=== PATIENT | male | born 1965 | race Two or more races ===

== ENCOUNTER 2016-08-31 08:14 | Inpatient (IN) | payer MEDICAID ==
[~2016-08-31] VITALS: Ht 177.8 cm; Wt 95.3 kg
[~2016-08-31 08:14] MED LIST: FURO40TA4 PO; SPIR50TA2 PO
[2016-08-31 09:29] LABS: Basophils # (auto) 0 uL; Basophils % (auto) 0.1 % (0.0-2.0); Eosinophils # (auto) 0 uL; Eosinophils % (auto) 0.5 % (0.0-7.0); Hematocrit 39.6 % (41.0-53.0); Hemoglobin 12.9 g/dL (13.5-17.5); Lymphocytes # (auto) 0.2 uL; Lymphocytes % (auto) 2.6 % (10.0-50.0); Mean Corpuscular Hemoglobin 29.4 pg (28.0-32.0); Mean Corpuscular Hgb Conc. 32.5 g/dL (32.0-36.0); Mean Corpuscular Volume 90.3 fL (80.0-100.0); Monocytes # (auto) 0.7 uL; Neutrophils # (auto) 5.7 uL; Neutrophils % (auto) 85.8 % (37.0-80.0); Platelet Count (auto) 120 10^3/uL (140-450); Red Cell Distribution Width 15.3 % (11.6-16.0); White Blood Cell 6.7 10^3/uL (4.4-10.8)
[2016-08-31 09:50] LABS: Urine Bilirubin Negative (Negative); Urine Blood Negative /uL (Negative); Urine Color Yellow (Yellow); Urine Glucose Normal (Normal); Urine Ketone Negative (Negative); Urine Nitrite Negative (Negative); Urine RBC 1 /hpf (0 - 3); Urine Squamous Epithelial Cell FEW /hpf (<5); Urine Urobilinogen Normal (Negative)
[2016-08-31 10:16] LABS: Albumin 2.5 g/dL (3.4-5.0); BUN/Creatinine Ratio 13.3; Calcium 9.3 mg/dL (8.5-10.1); Potassium 3.6 mmol/L (3.5-5.1)
[2016-08-31] MEDS ORDERED: MORPHINE SULF INJ 2 MG/ML SYRINGE 1ML IV PRN ×2 (10:30)
[2016-08-31] MEDS ORDERED: NITROGLYCERIN 0.4 MG SL TAB SL PRN (10:30)
[2016-08-31] MEDS ORDERED: ALBUTEROL SULF 2.5 MG/0.5ML(0.5%) NEB SOLN NEB PRN (10:30)
[2016-08-31] MEDS ORDERED: PROMETHAZINE HCL 25 MG/ML 1ML IV PRN (10:30)
[2016-08-31] MEDS ORDERED: LORazepam 0.5 MG TAB PO PRN (10:30)
[2016-08-31] MEDS ORDERED: TEMAZEPAM 15 MG CAP PO PRN (10:30)
[2016-08-31] MEDS ORDERED: OSELTAMIVIR 75 MG CAP PO ONE (10:30)
[2016-08-31 10:38] LABS: B-Type Natriuretic Peptide 177.29 pg/mL (0-100); Temperature: 22.5 C (20.0-25.0)
[2016-08-31 11:08] LABS: INR 1.44 (0.9-1.15); Prothrombin Time 14.8 sec (9.37-12.3)
[2016-08-31] MEDS: LACTULOSE 20Gm/30ML SOLN PO SCH ×3 (11:39→22:23)
[2016-08-31] MEDS: ENALAPRIL MALEATE 2.5 MG TAB PO SCH (11:40)
[2016-08-31] MEDS: IPRATROPIUM BROM 0.5 MG/2.5ML INH SOL NEB SCH ×3 (13:02→23:37)
[2016-08-31] MEDS: ALBUTEROL SULF 2.5 MG/0.5ML(0.5%) NEB SOLN NEB SCH ×3 (13:03→23:37)
[2016-08-31] MEDS ORDERED: ALBUMIN 25% 100 ML IV ONE ×9 (15:00→20:15)
[2016-08-31 15:06] VITALS: BP 134/81
[2016-08-31 16:49] VITALS: BP 134/81
[2016-08-31] MEDS: SPIRONOLACTONE 25 MG TAB PO SCH (17:45)
[2016-08-31 20:00] VITALS: BP 102/59
[2016-08-31 22:00] VITALS: BP 102/59
[2016-08-31] MEDS ORDERED: OSELTAMIVIR 75 MG CAP PO SCH (22:00)
[2016-08-31] MEDS: FUROSEMIDE 40 MG/4 ML VIAL IV SCH (22:23)
[2016-09-01] MEDS: LACTULOSE 20Gm/30ML SOLN PO SCH ×2 (04:01→09:30)
[2016-09-01 05:30] VITALS: BP 98/50
[2016-09-01] MEDS: SPIRONOLACTONE 25 MG TAB PO SCH (05:30)
[2016-09-01] MEDS: IPRATROPIUM BROM 0.5 MG/2.5ML INH SOL NEB SCH (06:08)
[2016-09-01] MEDS: ALBUTEROL SULF 2.5 MG/0.5ML(0.5%) NEB SOLN NEB SCH (06:08)
[2016-09-01 06:33] LABS: Basophils # (auto) 0 uL; Basophils % (auto) 0.2 % (0.0-2.0); Eosinophils # (auto) 0.1 uL; Eosinophils % (auto) 1.2 % (0.0-7.0); Hematocrit 33.7 % (41.0-53.0); Lymphocytes # (auto) 0.2 uL; Lymphocytes % (auto) 4.7 % (10.0-50.0); Mean Corpuscular Hemoglobin 29.5 pg (28.0-32.0); Mean Corpuscular Hgb Conc. 32.6 g/dL (32.0-36.0); Mean Corpuscular Volume 90.5 fL (80.0-100.0); Mean Platelet Volume 7.1 fL (7.4-10.4); Monocytes # (auto) 0.6 uL; Monocytes % (auto) 13.5 % (0.0-12.0); Neutrophils # (auto) 3.4 uL; Neutrophils % (auto) 80.4 % (37.0-80.0); Platelet Count (auto) 98 10^3/uL (140-450); Red Cell Distribution Width 15.3 % (11.6-16.0); White Blood Cell 4.2 10^3/uL (4.4-10.8)
[2016-09-01 07:22] LABS: B-Type Natriuretic Peptide 246.16 pg/mL (0-100)
[2016-09-01 07:24] VITALS: BP 106/58
[2016-09-01 07:29] LABS: BUN/Creatinine Ratio 15.5; Bilirubin, Total 3.2 mg/dL (0.2-1.0); Calcium 8.7 mg/dL (8.5-10.1); Potassium 3.7 mmol/L (3.5-5.1); Total Protein 6.3 g/dL (6.4-8.2)
[2016-09-01 08:00] VITALS: BP 106/58
[2016-09-01] MEDS: FUROSEMIDE 40 MG/4 ML VIAL IV SCH (09:31)
[2016-09-01] MEDS: ENALAPRIL MALEATE 2.5 MG TAB PO SCH (09:32)
[2016-09-01 11:00] VITALS: BP 113/63
[2016-09-01 11:31] VITALS: BP 102/71
== END 2016-09-01 12:00 | disposition home or self-care (01) | DRG 280 ==
LOC: ER 08:14 → TELE 08:15 → TELE-WESTW 15:10
PROVIDERS: ADMIT Internal Medicine; ATTEND Internal Medicine
PROC: 0W9G30Z Drainage of Peritoneal Cavity with Drainage Device, Percutaneous Approach (ICD-10-PCS; principal; 2016-08-31)
DX: K70.31 Alcoholic cirrhosis of liver with ascites (principal); E44.0 Moderate protein-calorie malnutrition; I50.9 Heart failure, unspecified; J45.909 Unspecified asthma, uncomplicated; B19.20 Unspecified viral hepatitis C without hepatic coma; Z82.49 Family history of ischemic heart disease and other diseases of the circulatory system; Z87.891 Personal history of nicotine dependence; Z98.890 Other specified postprocedural states; Z68.30 Body mass index [BMI] 30.0-30.9, adult
CPT/HCPCS: 36415; 71010; 76705; 76942; 80053; 80061; 81001; 82140; 82550; 83605; 83880; 84443; 84484; 85025; 85610; 87040; 87400; 93005; 94640; 94761

== ENCOUNTER 2016-11-09 08:37 | Inpatient (IN) | payer MEDICAID ==
[~2016-11-09] VITALS: Ht 177.8 cm; Wt 86.7 kg
[2016-11-09] MEDS ORDERED: ONDANSETRON HCL 4 MG/2 ML VIAL IV ONE (09:15)
[2016-11-09] MEDS ORDERED: LACTULOSE 20Gm/30ML SOLN PO ONE (09:15)
[2016-11-09 09:28] LABS: Basophils # (auto) 0 uL; Basophils % (auto) 0.1 % (0.0-2.0); Eosinophils # (auto) 0.1 uL; Eosinophils % (auto) 1.8 % (0.0-7.0); Hemoglobin 12.3 g/dL (13.5-17.5); Lymphocytes # (auto) 0.3 uL; Lymphocytes % (auto) 5.5 % (10.0-50.0); Mean Corpuscular Hemoglobin 30.6 pg (28.0-32.0); Mean Corpuscular Hgb Conc. 34.2 g/dL (32.0-36.0); Mean Corpuscular Volume 89.6 fL (80.0-100.0); Mean Platelet Volume 6.5 fL (7.4-10.4); Monocytes # (auto) 0.6 uL; Monocytes % (auto) 11.2 % (0.0-12.0); Neutrophils # (auto) 4.1 uL; Neutrophils % (auto) 81.4 % (37.0-80.0); Platelet Count (auto) 110 10^3/uL (140-450); Red Cell Distribution Width 15.2 % (11.6-16.0)
[2016-11-09 09:43] LABS: Partial Thromboplastin Time 33.6 sec (22.64-33.71)
[2016-11-09 10:00] LABS: Albumin 2.4 g/dL (3.4-5.0); BUN/Creatinine Ratio 14.8; Bilirubin, Total 1.9 mg/dL (0.2-1.0); Calcium 8.9 mg/dL (8.5-10.1); Total Protein 7.5 g/dL (6.4-8.2)
[2016-11-09 10:13] LABS: Urine Bilirubin Negative (Negative); Urine Blood Negative /uL (Negative); Urine Color Yellow (Yellow); Urine Glucose Normal (Normal); Urine Ketone Negative (Negative); Urine Nitrite Negative (Negative); Urine RBC <1 /hpf (0 - 3); Urine Urobilinogen Normal (Negative)
[2016-11-09 11:04] LABS: INR 1.32 (0.9-1.15); Prothrombin Time 14.3 sec (9.37-12.3)
[2016-11-09] MEDS ORDERED: ALBUTEROL SULF 2.5 MG/0.5ML(0.5%) NEB SOLN NEB PRN (11:15)
[2016-11-09] MEDS ORDERED: NITROGLYCERIN 0.4 MG SL TAB SL PRN (11:15)
[2016-11-09] MEDS ORDERED: MORPHINE SULF INJ 2 MG/ML SYRINGE 1ML IV PRN ×2 (11:15)
[2016-11-09] MEDS ORDERED: LACTULOSE 20Gm/30ML SOLN PO PRN (11:15)
[2016-11-09] MEDS ORDERED: LORazepam 0.5 MG TAB PO PRN (11:15)
[2016-11-09] MEDS ORDERED: TEMAZEPAM 15 MG CAP PO PRN (11:15)
[2016-11-09] MEDS ORDERED: SPIRONOLACTONE 25 MG TAB PO ONE (11:15)
[2016-11-09] MEDS ORDERED: PROCHLORPERAZINE EDISYLATE 5 MG/ML 2ML VIAL IV PRN (11:15)
[2016-11-09] MEDS ORDERED: ENOXAPARIN SOD 40 MG/0.4 ML SYRINGE SC ONE (11:30)
[2016-11-09] MEDS ORDERED: FUROSEMIDE 40 MG/4 ML VIAL IV ONE (11:30)
[2016-11-09] MEDS ORDERED: PANTOPRAZOLE 40 MG TAB PO ONE (11:30)
[2016-11-09] MEDS ORDERED: ALBUMIN 5% 0 ML IV ONE (13:37)
[2016-11-09] MEDS ORDERED: ALBUMIN 25% 100 ML IV ONE (13:39)
[2016-11-09] MEDS ORDERED: ALBUMIN 25% 50 ML IV ONE (13:43)
[2016-11-09] MEDS: SPIRONOLACTONE 25 MG TAB PO SCH (17:41)
[2016-11-09] MEDS: FUROSEMIDE 40 MG/4 ML VIAL IV SCH (21:42)
[2016-11-09 22:00] VITALS: BP 105/61
[2016-11-10 04:43] VITALS: BP 105/61
[2016-11-10 05:00] VITALS: BP 100/61
[2016-11-10] MEDS: SPIRONOLACTONE 25 MG TAB PO SCH (05:34)
[2016-11-10] MEDS: FUROSEMIDE 40 MG/4 ML VIAL IV SCH (09:35)
[2016-11-10] MEDS ORDERED: PANTOPRAZOLE 40 MG TAB PO SCH (10:00)
[2016-11-10] MEDS ORDERED: ENOXAPARIN SOD 40 MG/0.4 ML SYRINGE SC SCH (10:00)
[2016-11-10 10:32] VITALS: BP 106/65
== END 2016-11-10 11:30 | disposition home or self-care (01) ==
LOC: ER 08:42 → TELE 08:43 → TELE-WESTW 13:30
PROVIDERS: ADMIT Internal Medicine; ATTEND Internal Medicine
PROC: 0W9G3ZZ Drainage of Peritoneal Cavity, Percutaneous Approach (ICD-10-PCS; principal; 2016-11-09)
DX: R18.8 Other ascites (principal); K72.90 Hepatic failure, unspecified without coma; K74.60 Unspecified cirrhosis of liver; I50.9 Heart failure, unspecified; F17.210 Nicotine dependence, cigarettes, uncomplicated; J45.909 Unspecified asthma, uncomplicated; B19.20 Unspecified viral hepatitis C without hepatic coma; F10.21 Alcohol dependence, in remission; M19.90 Unspecified osteoarthritis, unspecified site; Z80.8 Family history of malignant neoplasm of other organs or systems; Z82.49 Family history of ischemic heart disease and other diseases of the circulatory system
CPT/HCPCS: 36415; 71010; 76705; 76942; 80053; 81001; 82140; 82150; 83690; 83735; 84443; 85025; 85610; 85730; 94761; 96374; J2405

== ENCOUNTER 2016-12-06 08:48 | Inpatient (IN) | payer MEDICAID ==
[~2016-12-06] VITALS: Ht 175.3 cm; Wt 99.5 kg
[2016-12-06 09:32] LABS: Basophils # (auto) 0 uL; Basophils % (auto) 0.1 % (0.0-2.0); Eosinophils # (auto) 0.1 uL; Eosinophils % (auto) 1.8 % (0.0-7.0); Hematocrit 39.1 % (41.0-53.0); Hemoglobin 13.7 g/dL (13.5-17.5); Lymphocytes # (auto) 0.4 uL; Lymphocytes % (auto) 6.1 % (10.0-50.0); Mean Corpuscular Hemoglobin 31.6 pg (28.0-32.0); Mean Corpuscular Hgb Conc. 34.9 g/dL (32.0-36.0); Mean Corpuscular Volume 90.3 fL (80.0-100.0); Mean Platelet Volume 6.6 fL (7.4-10.4); Monocytes # (auto) 0.6 uL; Monocytes % (auto) 9.9 % (0.0-12.0); Neutrophils # (auto) 4.9 uL; Neutrophils % (auto) 82.1 % (37.0-80.0); Platelet Count (auto) 105 10^3/uL (140-450); Red Cell Distribution Width 16.2 % (11.6-16.0)
[2016-12-06 10:00] LABS: Albumin 2.2 g/dL (3.4-5.0); Alkaline Phosphatase 74 U/L (45-117); Anion Gap 7 (5-15); Aspartate Aminotransferase 60 U/L (15-37); BUN/Creatinine Ratio 17.6; Bilirubin, Total 2.4 mg/dL (0.2-1.0); Blood Urea Nitrogen 28 mg/dL (7-18); Calcium 8.6 mg/dL (8.5-10.1); Carbon Dioxide 25 mmol/L (21-32); Chloride 101 mmol/L (98-107); GFR African American 59 mL/min; GFR Non-African American 49 mL/min; Glucose 107 mg/dL (74-106); Potassium 5.4 mmol/L (3.5-5.1); Sodium 133 mmol/L (136-145); Total Protein 7.3 g/dL (6.4-8.2)
[2016-12-06] MEDS ORDERED: ALBU18 (10:43)
[2016-12-06] MEDS ORDERED: SPIR100T21 (10:43)
[2016-12-06] MEDS ORDERED: KETOROLAC TROMETH 30 MG/ML 1ML VIAL IV ONE (11:00)
[2016-12-06] MEDS ORDERED: FUROSEMIDE 40 MG/4 ML VIAL IV ONE (11:00)
[2016-12-06] MEDS ORDERED: ALBUTEROL SULF 2.5 MG/0.5ML(0.5%) NEB SOLN NEB PRN (11:15)
[2016-12-06] MEDS ORDERED: MORPHINE SULF INJ 2 MG/ML SYRINGE 1ML IV PRN ×2 (11:15)
[2016-12-06] MEDS ORDERED: PROMETHAZINE HCL 25 MG/ML 1ML IV PRN (11:15)
[2016-12-06] MEDS ORDERED: LORazepam 0.5 MG TAB PO PRN (11:15)
[2016-12-06] MEDS ORDERED: NITROGLYCERIN 0.4 MG SL TAB SL PRN (11:15)
[2016-12-06] MEDS ORDERED: SODIUM POLYSTYRENE SULF 15GM/60ML SUSP PO ONE (11:15)
[2016-12-06] MEDS ORDERED: MORPHINE SULFATE 4 MG/ML SYRG IV PRN (11:15)
[2016-12-06] MEDS ORDERED: SODIUM CHLORIDE 0.9 % NEB SOLN 3ML NEB ONE (11:26)
[2016-12-06] MEDS ORDERED: PANTOPRAZOLE 40 MG TAB PO ONE (11:30)
[2016-12-06 11:43] LABS: Amylase 137 U/L (25-115)
[2016-12-06] MEDS ORDERED: LIDOCAINE 2% JELLY 11ml (GLYDO) ONE (11:43)
[2016-12-06 11:56] LABS: Partial Thromboplastin Time 30.3 sec (22.64-33.71)
[2016-12-06 12:00] LABS: INR 1.24 (0.9-1.15); Prothrombin Time 13.4 sec (9.37-12.3)
[2016-12-06] MEDS: ALBUTEROL SULF 2.5 MG/0.5ML(0.5%) NEB SOLN NEB SCH ×2 (12:13→18:19)
[2016-12-06] MEDS: LACTULOSE 20Gm/30ML SOLN PO SCH ×2 (14:08→18:00)
[2016-12-06 18:44] LABS: BUN/Creatinine Ratio 17.4; Calcium 8.3 mg/dL (8.5-10.1); Potassium 4.3 mmol/L (3.5-5.1)
[2016-12-06 20:00] VITALS: BP_SYST 68; BP_SYST 87; BP_DIAS 42; BP_DIAS 48
[2016-12-06 20:30] VITALS: BP 62/42
[2016-12-06 21:00] VITALS: BP 70/46
[2016-12-06 21:01] VITALS: BP 112/44
[2016-12-06 21:30] VITALS: BP 92/50
[2016-12-06] MEDS ORDERED: ALBUMIN 5% 250 ML IV ONE ×4 (22:28→22:30)
[2016-12-06] MEDS ORDERED: ALBUMIN 25% 400 ML IV ONE (22:28)
[2016-12-06] MEDS ORDERED: ALBUMIN 25% 100 ML IV ONE (22:30)
[2016-12-07] VITALS: BP 110/54
[2016-12-07 04:00] VITALS: BP 86/53
[2016-12-07 05:05] LABS: Basophils # (auto) 0 uL; Basophils % (auto) 0.2 % (0.0-2.0); DEFINITIVE VIEW TRANSMISSION; Eosinophils # (auto) 0 uL; Eosinophils % (auto) 0.8 % (0.0-7.0); Hematocrit 20.2 % (41.0-53.0); Hemoglobin 7.1 g/dL (13.5-17.5); Lymphocytes # (auto) 0.3 uL; Lymphocytes % (auto) 5.3 % (10.0-50.0); Mean Corpuscular Hemoglobin 31.7 pg (28.0-32.0); Mean Corpuscular Hgb Conc. 35.2 g/dL (32.0-36.0); Mean Platelet Volume 6.4 fL (7.4-10.4); Monocytes # (auto) 0.8 uL; Monocytes % (auto) 16.4 % (0.0-12.0); Neutrophils # (auto) 3.8 uL; Neutrophils % (auto) 77.3 % (37.0-80.0); Platelet Count (auto) 81 10^3/uL (140-450); Red Cell Distribution Width 16.1 % (11.6-16.0); White Blood Cell 4.9 10^3/uL (4.4-10.8)
[2016-12-07 05:18] LABS: Albumin 2.1 g/dL (3.4-5.0); Calcium 8.1 mg/dL (8.5-10.1); Potassium 4.2 mmol/L (3.5-5.1)
[2016-12-07 05:21] LABS: BUN/Creatinine Ratio 20.8; Total Protein 4.8 g/dL (6.4-8.2)
[2016-12-07] MEDS: LACTULOSE 20Gm/30ML SOLN PO SCH ×4 (05:40→18:57)
[2016-12-07] MEDS: ALBUTEROL SULF 2.5 MG/0.5ML(0.5%) NEB SOLN NEB SCH ×4 (05:59→18:54)
[2016-12-07 08:00] VITALS: BP 110/58
[2016-12-07] MEDS: FUROSEMIDE 40 MG/4 ML VIAL IV SCH (10:00)
[2016-12-07] MEDS: PANTOPRAZOLE 40 MG TAB PO SCH (10:06)
[2016-12-07 12:00] VITALS: BP 106/49
[2016-12-07 16:00] VITALS: BP 93/56
[2016-12-07 20:00] VITALS: BP 98/56
[2016-12-08] VITALS (7 sets, daily range): BP systolic 86–119; BP diastolic 45–62
[2016-12-08] MEDS: ALBUTEROL SULF 2.5 MG/0.5ML(0.5%) NEB SOLN NEB SCH ×4 (00:47→18:54)
[2016-12-08] MEDS ORDERED: SODIUM CHLORIDE 0.9 % NEB SOLN 3ML NEB ONE (05:13)
[2016-12-08] MEDS: LACTULOSE 20Gm/30ML SOLN PO SCH ×5 (05:37→23:15)
[2016-12-08] MEDS: PANTOPRAZOLE 40 MG TAB PO SCH (10:15)
[2016-12-08] MEDS: FUROSEMIDE 40 MG/4 ML VIAL IV SCH (10:16)
[2016-12-08 14:17] LABS: Basophils # (auto) 0 uL; DEFINITIVE VIEW TRANSMISSION; Eosinophils # (auto) 0 uL; Eosinophils % (auto) 0.3 % (0.0-7.0); Hematocrit 21.7 % (41.0-53.0); Hemoglobin 7.6 g/dL (13.5-17.5); Lymphocytes # (auto) 0.2 uL; Lymphocytes % (auto) 3.1 % (10.0-50.0); Mean Corpuscular Hemoglobin 31.8 pg (28.0-32.0); Mean Platelet Volume 6.6 fL (7.4-10.4); Monocytes # (auto) 1.3 uL; Monocytes % (auto) 16.7 % (0.0-12.0); Neutrophils # (auto) 6.2 uL; Neutrophils % (auto) 79.9 % (37.0-80.0); Platelet Count (auto) 103 10^3/uL (140-450); Red Cell Distribution Width 16.8 % (11.6-16.0); White Blood Cell 7.8 10^3/uL (4.4-10.8)
[2016-12-08] MEDS: TEMAZEPAM 15 MG CAP PO PRN ×2 (23:40→23:41)
[2016-12-09 04:00] VITALS: BP 94/56
[2016-12-09] MEDS: LACTULOSE 20Gm/30ML SOLN PO SCH ×4 (05:50→23:52)
[2016-12-09] MEDS: ALBUTEROL SULF 2.5 MG/0.5ML(0.5%) NEB SOLN NEB SCH ×4 (07:34→18:52)
[2016-12-09 07:54] VITALS: BP 91/48
[2016-12-09] MEDS: PANTOPRAZOLE 40 MG TAB PO SCH (09:28)
[2016-12-09] MEDS: FUROSEMIDE 40 MG/4 ML VIAL IV SCH (09:29)
[2016-12-09 11:52] VITALS: BP 90/51
[2016-12-09 12:03] LABS: Basophils # (auto) 0 uL; Basophils % (auto) 0.2 % (0.0-2.0); DEFINITIVE VIEW TRANSMISSION; Eosinophils # (auto) 0 uL; Eosinophils % (auto) 0.5 % (0.0-7.0); Hematocrit 21.2 % (41.0-53.0); Hemoglobin 7.4 g/dL (13.5-17.5); Lymphocytes # (auto) 0.3 uL; Lymphocytes % (auto) 3.6 % (10.0-50.0); Mean Corpuscular Volume 91.4 fL (80.0-100.0); Mean Platelet Volume 6.6 fL (7.4-10.4); Monocytes # (auto) 1.2 uL; Monocytes % (auto) 16.8 % (0.0-12.0); Neutrophils # (auto) 5.5 uL; Neutrophils % (auto) 78.9 % (37.0-80.0); Platelet Count (auto) 101 10^3/uL (140-450); White Blood Cell 6.9 10^3/uL (4.4-10.8)
[2016-12-09 12:23] LABS: INR 1.45 (0.9-1.15); Prothrombin Time 15.9 sec (9.37-12.3)
[2016-12-09 15:50] VITALS: BP 102/67
[2016-12-09 20:00] VITALS: BP 115/83
[2016-12-09 23:34] VITALS: BP 115/83
[2016-12-09] MEDS: TEMAZEPAM 15 MG CAP PO PRN (23:53)
[2016-12-10] VITALS: BP 110/61
[2016-12-10] MEDS: ALBUTEROL SULF 2.5 MG/0.5ML(0.5%) NEB SOLN NEB SCH ×4 (00:06→12:15)
[2016-12-10 04:00] VITALS: BP 102/52
[2016-12-10] MEDS: LACTULOSE 20Gm/30ML SOLN PO SCH ×3 (06:04→18:40)
[2016-12-10 08:00] VITALS: BP 86/47
[2016-12-10] MEDS ORDERED: LIDOCAINE VISCOUS 2% 15ML UD ONE (08:27)
[2016-12-10] MEDS ORDERED: SODIUM CHLORIDE LOCK 10 ML ONE (08:27)
[2016-12-10] MEDS ORDERED: diphenhdrAMINE HCL 50 MG/1 ML VL ONE (08:28)
[2016-12-10] MEDS: PANTOPRAZOLE 40 MG TAB PO SCH ×2 (10:00→22:17)
[2016-12-10] MEDS: FUROSEMIDE 40 MG/4 ML VIAL IV SCH (10:30)
[2016-12-10] MEDS: MIDAZOLAM HCL 5 MG/ML-1ML VIAL ONE ×2 (12:53→12:59)
[2016-12-10] MEDS: fentaNYL CITRATE 100 MCG/2 ML VL ONE ×2 (12:53→12:59)
[2016-12-10 16:00] VITALS: BP 106/65
[2016-12-10 20:00] VITALS: BP 92/51
[2016-12-11] VITALS: BP 117/67
[2016-12-11] MEDS: LACTULOSE 20Gm/30ML SOLN PO SCH ×4 (00:01→18:58)
[2016-12-11] MEDS: TEMAZEPAM 15 MG CAP PO PRN (00:01)
[2016-12-11 04:00] VITALS: BP 100/58
[2016-12-11] MEDS: ALBUTEROL SULF 2.5 MG/0.5ML(0.5%) NEB SOLN NEB SCH ×3 (06:07→18:47)
[2016-12-11 09:00] VITALS: BP 112/67
[2016-12-11] MEDS: PANTOPRAZOLE 40 MG TAB PO SCH ×2 (10:06→21:56)
[2016-12-11] MEDS: FUROSEMIDE 40 MG/4 ML VIAL IV SCH (10:06)
[2016-12-11 12:40] LABS: Hematocrit 25.5 % (41.0-53.0); Hemoglobin 8.8 g/dL (13.5-17.5)
[2016-12-11 13:00] VITALS: BP 96/53
[2016-12-11 17:00] VITALS: BP 101/62
[2016-12-11 22:00] VITALS: BP 120/60
[2016-12-12] MEDS: TEMAZEPAM 15 MG CAP PO PRN (00:10)
[2016-12-12] MEDS: LACTULOSE 20Gm/30ML SOLN PO SCH ×3 (00:10→12:00)
[2016-12-12 05:00] VITALS: BP 99/56
[2016-12-12] MEDS: ALBUTEROL SULF 2.5 MG/0.5ML(0.5%) NEB SOLN NEB SCH ×3 (06:38→12:00)
[2016-12-12 08:18] VITALS: BP 104/51
[2016-12-12] MEDS: FUROSEMIDE 40 MG/4 ML VIAL IV SCH (09:50)
[2016-12-12] MEDS: PANTOPRAZOLE 40 MG TAB PO SCH (09:51)
[2016-12-12 11:40] VITALS: BP 104/51
[2016-12-12 11:51] VITALS: BP 106/60
== END 2016-12-12 13:30 | disposition home or self-care (01) | DRG 280 ==
LOC: ER 08:48 → TELE 08:49 → TELE-E-ADS 15:31 → TELE-EAST 17:08 → DOU IN ICU 19:23 → TELE-WESTW 12-11 06:43
PROVIDERS: ADMIT Internal Medicine; ATTEND Internal Medicine
PROC: 0W9G3ZZ Drainage of Peritoneal Cavity, Percutaneous Approach (ICD-10-PCS; 2016-12-10)
PROC: 0DJ08ZZ Inspection of Upper Intestinal Tract, Via Natural or Artificial Opening Endoscopic (ICD-10-PCS; 2016-12-10)
PROC: 0W3P8ZZ Control Bleeding in Gastrointestinal Tract, Via Natural or Artificial Opening Endoscopic (ICD-10-PCS; principal; 2016-12-10 12:50)
DX: K70.31 Alcoholic cirrhosis of liver with ascites (principal); E43 Unspecified severe protein-calorie malnutrition; K29.01 Acute gastritis with bleeding; N17.9 Acute kidney failure, unspecified; K29.81 Duodenitis with bleeding; E46 Unspecified protein-calorie malnutrition; K76.6 Portal hypertension; D69.6 Thrombocytopenia, unspecified; N18.3 Chronic kidney disease, stage 3 (moderate); I85.00 Esophageal varices without bleeding; I50.9 Heart failure, unspecified; E87.1 Hypo-osmolality and hyponatremia; E87.5 Hyperkalemia; K44.9 Diaphragmatic hernia without obstruction or gangrene; J44.9 Chronic obstructive pulmonary disease, unspecified; K29.00 Acute gastritis without bleeding; K80.20 Calculus of gallbladder without cholecystitis without obstruction; Z82.49 Family history of ischemic heart disease and other diseases of the circulatory system; F10.20 Alcohol dependence, uncomplicated; M19.90 Unspecified osteoarthritis, unspecified site; Z80.9 Family history of malignant neoplasm, unspecified; K29.80 Duodenitis without bleeding; K29.50 Unspecified chronic gastritis without bleeding; R71.0 Precipitous drop in hematocrit; E88.09 Other disorders of plasma-protein metabolism, not elsewhere classified; K31.89 Other diseases of stomach and duodenum
CPT/HCPCS: 10022; 36415; 43235; 51702; 71020; 74176; 76705; 76942; 80048; 80053; 82140; 82150; 82962; 83690; 84443; 84484; 85014; 85018; 85025; 85610; 85730; 87081; 93005; 94640; 96374; 96375; J1885; J2250

== ENCOUNTER 2016-12-19 06:22 | Inpatient (IN) | payer MEDICAID ==
[~2016-12-19] VITALS: Ht 177.8 cm; Wt 93.2 kg
[~2016-12-19 06:22] MED LIST changes: +ALBU18
[2016-12-19] MEDS ORDERED: SODIUM CHLORIDE 0.9% 1,000 ML IV ONE ×2 (07:21→16:45)
[2016-12-19 08:16] LABS: Hematocrit 40.7 % (41.0-53.0); Hemoglobin 13.9 g/dL (13.5-17.5); Mean Corpuscular Hemoglobin 31.9 pg (28.0-32.0); Mean Corpuscular Hgb Conc. 34.2 g/dL (32.0-36.0); Mean Corpuscular Volume 93.2 fL (80.0-100.0); Mean Platelet Volume 6.9 fL (7.4-10.4); Platelet Count (auto) 201 10^3/uL (140-450); Red Cell Distribution Width 17.1 % (11.6-16.0); SUSPECT VIEW TRANSMISSION
[2016-12-19 08:19] LABS: Metamyelocytes % 0; Myelocytes % 0; Promyelocytes % 0; Reactive Lymphocytes 0
[2016-12-19 08:33] LABS: Platelet Estimate Adequate
[2016-12-19 08:34] LABS: Polychromasia Slight
[2016-12-19 08:40] LABS: Albumin 1.6 g/dL (3.4-5.0); Alkaline Phosphatase 148 U/L (45-117); Anion Gap 23 (5-15); Aspartate Aminotransferase 39 U/L (15-37); BUN/Creatinine Ratio 17.8; Bilirubin, Total 4.8 mg/dL (0.2-1.0); Carbon Dioxide 11 mmol/L (21-32); Chloride 94 mmol/L (98-107); GFR African American 14 mL/min; GFR Non-African American 12 mL/min; Glucose 119 mg/dL (74-106); Potassium 5.4 mmol/L (3.5-5.1); Sodium 128 mmol/L (136-145); Total Protein 6.4 g/dL (6.4-8.2)
[2016-12-19 08:45] LABS: Blood Urea Nitrogen 99 mg/dL (7-18)
[2016-12-19 11:42] LABS: Urine Bilirubin Negative (Negative); Urine Color Yellow (Yellow); Urine Glucose Normal (Normal); Urine Hyaline Cast MOD /lpf (0 - 2); Urine Ketone Negative (Negative); Urine Nitrite Negative (Negative); Urine RBC 1 /hpf (0 - 3); Urine Squamous Epithelial Cell FEW /hpf (<5)
[2016-12-19 11:46] LABS: Urine Blood 1+ /uL (Negative)
[2016-12-19] MEDS ORDERED: SODIUM CHLORIDE 0.9% 1,000 ML IV SCH (12:51)
[2016-12-19] MEDS ORDERED: MORPHINE SULF INJ 2 MG/ML SYRINGE 1ML IV PRN ×2 (13:00)
[2016-12-19] MEDS ORDERED: ACETAMINOPHEN 500 MG TAB PO PRN (13:00)
[2016-12-19] MEDS ORDERED: LORazepam 0.5 MG TAB PO PRN (13:00)
[2016-12-19] MEDS ORDERED: PIPERACILLIN-TAZOB 2.25GM 50 ML IV ONE (13:00)
[2016-12-19] MEDS ORDERED: TEMAZEPAM 15 MG CAP PO PRN (13:00)
[2016-12-19] MEDS ORDERED: HYDROcodone-ACET 5/325MG TAB PO PRN (13:00)
[2016-12-19] MEDS ORDERED: PROMETHAZINE HCL 25 MG/ML 1ML IV PRN (13:00)
[2016-12-19] MEDS ORDERED: PANTOPRAZOLE SODIUM 40 MG/10 ML VIAL IV ONE (13:00)
[2016-12-19] MEDS ORDERED: NITROGLYCERIN 0.4 MG SL TAB SL PRN (13:00)
[2016-12-19] MEDS ORDERED: LACTULOSE 20Gm/30ML SOLN PO PRN (13:00)
[2016-12-19] MEDS ORDERED: ENOXAPARIN SOD 30 MG/0.3 ML SYRINGE SC SCH (13:03)
[2016-12-19 14:13] LABS: Partial Thromboplastin Time 57.4 sec (22.64-33.71)
[2016-12-19 14:19] LABS: Lactic Acid w/Reflex 12.3 mmol/L (0.4-2.0)
[2016-12-19 14:20] LABS: INR 2.22 (0.9-1.15); Prothrombin Time 24.4 sec (9.37-12.3)
[2016-12-19 14:29] LABS: REFLEX LACTIC ACID YES OR NO YES
[2016-12-19] MEDS ORDERED: LACTULOSE 20Gm/30ML SOLN PR ONE (14:30)
[2016-12-19] MEDS ORDERED: PHYTONADIONE (VIT K)10 MG/ML 1ML VIAL SUBCUT ONE (15:00)
[2016-12-19] MEDS: LINEZOLID 600MG/300ML 300 ML IV SCH (15:00)
[2016-12-19 17:04] LABS: Allen Test Yes; Base Excess -20.4 mmol/L (-2.0-2.0); Blood COHb 0.3 % (0.5-1.5); Blood MetHb 0.5 % (0.0-1.5); HCO3 5.6 mmol/L (22-26.0); MODE NASAL CANNULA; O2Hb 97.2 % (94.0-97.0); PCO2 15.1 mmHg (35.0-45.0); PCO2(T) 15.1 mmHg (35.0-45.0); PO2 171.5 mmHg (80.0-100.0); PO2(T) 171.5 mmHg (80.0-100.0); Room 1014-ERT; Sample Type Arterial; pH 7.184 (7.350-7.450)
[2016-12-19] MEDS ORDERED: MIDAZOLAM HCL 5 MG/ML-1ML VIAL IV ONE ×2 (17:30→18:00)
[2016-12-19] MEDS ORDERED: MIDAZOLAM HCL 5 MG/ML-1ML VIAL ONE (17:31)
[2016-12-19 17:42] LABS: DEFINITIVE VIEW TRANSMISSION; SUSPECT VIEW TRANSMISSION
[2016-12-19 17:45] LABS: Hemoglobin 12.2 g/dL (13.5-17.5); Mean Corpuscular Hemoglobin 31.8 pg (28.0-32.0); Mean Corpuscular Volume 93.5 fL (80.0-100.0); Mean Platelet Volume 7.2 fL (7.4-10.4); Platelet Count (auto) 161 10^3/uL (140-450); Red Cell Distribution Width 17.5 % (11.6-16.0); White Blood Cell 25.4 10^3/uL (4.4-10.8)
[2016-12-19] MEDS ORDERED: MIDAZOLAM DRIP 100 mg/100mL NS 100 ML IV ONE (17:45)
[2016-12-19 17:52] LABS: Metamyelocytes % 0; Myelocytes % 0; Promyelocytes % 0; Reactive Lymphocytes 0
[2016-12-19 17:54] LABS: Albumin 1.5 g/dL (3.4-5.0); BUN/Creatinine Ratio 16.9; Calcium 9.1 mg/dL (8.5-10.1); Total Protein 5.7 g/dL (6.4-8.2)
[2016-12-19] MEDS: MIDAZOLAM DRIP 100 mg/100mL NS 100 ML IV SCH ×2 (17:57→22:09)
[2016-12-19] MEDS: ALBUMIN 25% 100 ML IV SCH ×2 (18:00→21:13)
[2016-12-19 18:03] VITALS: BP 134/105
[2016-12-19 18:17] LABS: Anisocytosis Moderate; Platelet Estimate Adequate
[2016-12-19 18:18] LABS: Burr Cells FEW; Polychromasia Slight
[2016-12-19] MEDS: SODIUM BICARBONATE 50ML VIAL 150 ML in D5W 5% 1,000 ML IV SCH (18:28)
[2016-12-19 18:32] LABS: Potassium 5.9 mmol/L (3.5-5.1)
[2016-12-19] MEDS: NOREPINEPHRINE BITARTRATE 250 ML IV SCH (18:35)
[2016-12-19 20:10] VITALS: BP 86/26
[2016-12-19 20:15] LABS: Base Excess -22.1 mmol/L (-2.0-2.0); Blood 02Sat 99.1 % (96-100); Blood COHb 0.3 % (0.5-1.5); Blood MetHb 0.5 % (0.0-1.5); HCO3 5.8 mmol/L (22-26.0); HHb 0.9 % (0.0-5.0); MODE VENT - A/C; O2Hb 98.3 % (94.0-97.0); PCO2 19.5 mmHg (35.0-45.0); PCO2(T) 19.5 mmHg (35.0-45.0); PO2 362.9 mmHg (80.0-100.0); PO2(T) 362.9 mmHg (80.0-100.0); Room 1014-ERT; Sample Type Arterial; pH 7.094 (7.350-7.450)
[2016-12-19] MEDS ORDERED: SODIUM BICARBONATE 8.4% INJ 50ML SYRINGE ONE (20:48)
[2016-12-19] MEDS ORDERED: SODIUM BICARBONATE 8.4 % INJ 50ML VIAL IV ONE (21:00)
[2016-12-19 21:09] LABS: REFLEX LACTIC ACID YES OR NO YES
[2016-12-19] MEDS: PIPERACILLIN-TAZOB 2.25GM 50 ML IV SCH (21:14)
[2016-12-19] MEDS: LACTULOSE 20Gm/30ML SOLN NG SCH ×2 (21:27→23:52)
[2016-12-19 22:10] LABS: Hematocrit 34.3 % (41.0-53.0); Hemoglobin 11.1 g/dL (13.5-17.5)
[2016-12-19 22:35] VITALS: BP 110/20
[2016-12-19 22:46] LABS: Base Excess -19.1 mmol/L (-2.0-2.0); Blood 02Sat 91.6 % (96-100); Blood MetHb 0.4 % (0.0-1.5); HCO3 7.6 mmol/L (22-26.0); HHb 8.4 % (0.0-5.0); MODE VENT - A/C; O2Hb 91.2 % (94.0-97.0); PCO2 21.3 mmHg (35.0-45.0); PCO2(T) 18.3 mmHg (35.0-45.0); PO2 82.4 mmHg (80.0-100.0); PO2(T) 65.6 mmHg (80.0-100.0); Room 1014-ERT; Sample Type Arterial
[2016-12-20] VITALS (84 sets, daily range): BP systolic 70–147; BP diastolic 28–117
[2016-12-20] MEDS ORDERED: SODIUM BICARBONATE 8.4% INJ 50ML SYRINGE ONE (00:33)
[2016-12-20] MEDS ORDERED: SODIUM BICARBONATE 8.4 % INJ 50ML VIAL IV ONE (00:45)
[2016-12-20] MEDS: LACTULOSE 20Gm/30ML SOLN NG SCH ×6 (02:00→21:31)
[2016-12-20 02:28] LABS: Base Excess -14.8 mmol/L (-2.0-2.0); Blood 02Sat 87.1 % (96-100); Blood COHb 0.7 % (0.5-1.5); Blood MetHb 0.5 % (0.0-1.5); HCO3 11.3 mmol/L (22-26.0); HHb 12.7 % (0.0-5.0); MODE VENT - A/C; O2Hb 86.1 % (94.0-97.0); PCO2 27.8 mmHg (35.0-45.0); PCO2(T) 25.5 mmHg (35.0-45.0); PO2 65.3 mmHg (80.0-100.0); PO2(T) 56.9 mmHg (80.0-100.0); Sample Type Arterial; pH 7.227 (7.350-7.450)
[2016-12-20] MEDS ORDERED: ALBUMIN 5% 250 ML IV ONE ×2 (02:29→02:45)
[2016-12-20] MEDS ORDERED: VASOPRESSIN 20 UNIT/ML ONE ×2 (02:30→02:33)
[2016-12-20] MEDS: LINEZOLID 600MG/300ML 300 ML IV SCH ×2 (03:00→15:23)
[2016-12-20] MEDS: VASOPRESSIN 50 UNITS in SODIUM CHL 0.9% 247.5 ML IV SCH (03:03)
[2016-12-20 04:06] LABS: Hematocrit 31.2 % (41.0-53.0); Hemoglobin 10.4 g/dL (13.5-17.5); Mean Corpuscular Hemoglobin 31.5 pg (28.0-32.0); Mean Corpuscular Hgb Conc. 33.5 g/dL (32.0-36.0); Mean Platelet Volume 7.2 fL (7.4-10.4); Platelet Count (auto) 138 10^3/uL (140-450); Red Cell Distribution Width 17.9 % (11.6-16.0); SUSPECT VIEW TRANSMISSION; White Blood Cell 5.7 10^3/uL (4.4-10.8)
[2016-12-20 04:33] LABS: Albumin 2.4 g/dL (3.4-5.0); Alkaline Phosphatase 100 U/L (45-117); Anion Gap 27 (5-15); BUN/Creatinine Ratio 17.2; Bilirubin, Total 5.2 mg/dL (0.2-1.0); Calcium 8.4 mg/dL (8.5-10.1); Carbon Dioxide 13 mmol/L (21-32); Chloride 95 mmol/L (98-107); Cholesterol < 50 mg/dL (< 200); GFR African American 13 mL/min; GFR Non-African American 11 mL/min; Glucose 55 mg/dL (74-106); HDL Cholesterol 8 mg/dL (40-59); LDL Cholesterol 21 mg/dL (< 100); Magnesium 3.1 mg/dL (1.6-2.6); Potassium 5.2 mmol/L (3.5-5.1); Sodium 135 mmol/L (136-145); Triglycerides 49 mg/dL (< 150)
[2016-12-20 04:37] LABS: Blood Urea Nitrogen 101 mg/dL (7-18)
[2016-12-20 04:39] LABS: Phosphorus 9.6 mg/dL (2.5-4.90)
[2016-12-20] MEDS ORDERED: IPRATROPIUM BROM 0.5 MG/2.5ML INH SOL ONE (04:47)
[2016-12-20] MEDS ORDERED: ALBUTEROL SULF 2.5 MG/0.5ML(0.5%) NEB SOLN ONE (04:47)
[2016-12-20 04:48] LABS: Promyelocytes % 0; Reactive Lymphocytes 0
[2016-12-20 04:54] LABS: Aspartate Aminotransferase 635 U/L (15-37)
[2016-12-20] MEDS: fentaNYL Drip 2500mCg/250mlNS 250 ML IV SCH (05:05)
[2016-12-20] MEDS: SODIUM BICARBONATE 50ML VIAL 150 ML in D5W 5% 1,000 ML IV SCH ×2 (05:06→16:30)
[2016-12-20] MEDS: PIPERACILLIN-TAZOB 2.25GM 50 ML IV SCH ×3 (05:06→20:47)
[2016-12-20 05:12] LABS: Metamyelocytes % 4; Myelocytes % 3
[2016-12-20 05:13] LABS: Platelet Estimate Decreased; Polychromasia Slight
[2016-12-20 05:14] LABS: Anisocytosis Moderate; Burr Cells FEW
[2016-12-20] MEDS: MIDAZOLAM DRIP 100 mg/100mL NS 100 ML IV SCH (07:00)
[2016-12-20] MEDS: NOREPINEPHRINE BITARTRATE 250 ML IV SCH (07:01)
[2016-12-20 07:55] LABS: Base Excess -9.2 mmol/L (-2.0-2.0); Blood 02Sat 96.7 % (96-100); Blood COHb 0.6 % (0.5-1.5); Blood MetHb 0.5 % (0.0-1.5); HCO3 14.8 mmol/L (22-26.0); HHb 3.3 % (0.0-5.0); MODE VENT - A/C; O2Hb 95.6 % (94.0-97.0); PCO2 26.8 mmHg (35.0-45.0); PCO2(T) 26.8 mmHg (35.0-45.0); Sample Type Arterial; pH 7.359 (7.350-7.450)
[2016-12-20 08:30] LABS: Hepatitis B Surface Antibody Negative
[2016-12-20] MEDS: ALBUTEROL SULF 2.5 MG/0.5ML(0.5%) NEB SOLN NEB SCH ×5 (08:37→22:33)
[2016-12-20] MEDS: IPRATROPIUM BROM 0.5 MG/2.5ML INH SOL NEB SCH ×5 (08:37→22:33)
[2016-12-20 09:36] LABS: Partial Thromboplastin Time 47.2 sec (22.64-33.71)
[2016-12-20 10:00] LABS: INR 1.93 (0.9-1.15); Prothrombin Time 21.2 sec (9.37-12.3)
[2016-12-20] MEDS: PHYTONADIONE (VIT K)10 MG/ML 1ML VIAL SUBCUT SCH (10:54)
[2016-12-20] MEDS: PANTOPRAZOLE SODIUM 40 MG/10 ML VIAL IV SCH (10:54)
[2016-12-20] MEDS: ALBUMIN 25% 100 ML IV SCH ×5 (14:56→22:33)
[2016-12-20 16:44] LABS: INR 2.03 (0.9-1.15); Prothrombin Time 22.3 sec (9.37-12.3)
[2016-12-20 19:18] LABS: Body Fluid Polymorphonuclear 82 %
[2016-12-20] MEDS: PHENYLEPHRINE INJ 20 MG in SODIUM CHL 0.9% 250 ML IV SCH (19:40)
[2016-12-20] MEDS ORDERED: ALBUMIN 25% 100 ML IV ONE (20:00)
[2016-12-20] MEDS: RIFAXIMIN 550 MG TAB PO SCH (21:32)
[2016-12-21] VITALS (105 sets, daily range): BP systolic 77–147; BP diastolic 41–110
[2016-12-21] MEDS: PROPOFOL 100 ML IV SCH (01:00)
[2016-12-21] MEDS: LACTULOSE 20Gm/30ML SOLN NG SCH ×6 (01:30→22:43)
[2016-12-21] MEDS: fentaNYL Drip 2500mCg/250mlNS 250 ML IV SCH (01:46)
[2016-12-21] MEDS: LINEZOLID 600MG/300ML 300 ML IV SCH ×2 (02:36→16:10)
[2016-12-21] MEDS: SODIUM BICARBONATE 50ML VIAL 150 ML in D5W 5% 1,000 ML IV SCH ×2 (02:38→08:45)
[2016-12-21] MEDS: ALBUTEROL SULF 2.5 MG/0.5ML(0.5%) NEB SOLN NEB SCH ×5 (02:40→22:36)
[2016-12-21] MEDS: IPRATROPIUM BROM 0.5 MG/2.5ML INH SOL NEB SCH ×5 (02:40→22:37)
[2016-12-21] MEDS: NOREPINEPHRINE BITARTRATE 250 ML IV SCH (02:45)
[2016-12-21 03:54] LABS: DEFINITIVE VIEW TRANSMISSION; Hematocrit 27.5 % (41.0-53.0); Hemoglobin 9.3 g/dL (13.5-17.5); Mean Corpuscular Hemoglobin 31.9 pg (28.0-32.0); Mean Corpuscular Volume 93.8 fL (80.0-100.0); Mean Platelet Volume 8.6 fL (7.4-10.4); Platelet Count (auto) 39 10^3/uL (140-450); Red Cell Distribution Width 17.5 % (11.6-16.0); SUSPECT VIEW TRANSMISSION
[2016-12-21] MEDS: PHENYLEPHRINE INJ 20 MG in SODIUM CHL 0.9% 250 ML IV SCH ×2 (04:00→12:20)
[2016-12-21 04:09] LABS: Myelocytes % 0; Promyelocytes % 0; Reactive Lymphocytes 0
[2016-12-21 04:16] LABS: Albumin 2.6 g/dL (3.4-5.0); BUN/Creatinine Ratio 18.7; Calcium 6.9 mg/dL (8.5-10.1); Potassium 5.4 mmol/L (3.5-5.1)
[2016-12-21 04:18] LABS: Bilirubin, Total 5.5 mg/dL (0.2-1.0); Total Protein 4.7 g/dL (6.4-8.2)
[2016-12-21 04:53] LABS: Metamyelocytes % 2; Platelet Estimate Decreased
[2016-12-21 04:54] LABS: Anisocytosis Moderate; Polychromasia Slight
[2016-12-21] MEDS: PIPERACILLIN-TAZOB 2.25GM 50 ML IV SCH ×3 (05:28→21:00)
[2016-12-21] MEDS: VASOPRESSIN 50 UNITS in SODIUM CHL 0.9% 247.5 ML IV SCH ×2 (05:28→16:47)
[2016-12-21] MEDS ORDERED: metroNIDAZOLE 250MG/50 ML 50 ML IV SCH (06:00)
[2016-12-21 07:50] LABS: Base Excess -8.3 mmol/L (-2.0-2.0); Blood 02Sat 90.8 % (96-100); Blood COHb 0.3 % (0.5-1.5); Blood MetHb 0.6 % (0.0-1.5); HHb 9.1 % (0.0-5.0); MODE VENT - A/C; PCO2 28.8 mmHg (35.0-45.0); PCO2(T) 28.8 mmHg (35.0-45.0); PO2 70.4 mmHg (80.0-100.0); PO2(T) 70.4 mmHg (80.0-100.0); Sample Type Arterial; pH 7.363 (7.350-7.450)
[2016-12-21] MEDS: metroNIDAZOLE 250MG/50 ML 50 ML IV SCH ×3 (09:06→22:00)
[2016-12-21] MEDS: RIFAXIMIN 550 MG TAB PO SCH ×2 (10:25→22:43)
[2016-12-21] MEDS: PANTOPRAZOLE SODIUM 40 MG/10 ML VIAL IV SCH (10:25)
[2016-12-21] MEDS: PHYTONADIONE (VIT K)10 MG/ML 1ML VIAL SUBCUT SCH (10:26)
[2016-12-21] MEDS: MIDAZOLAM DRIP 100 mg/100mL NS 100 ML IV SCH (17:57)
[2016-12-22] VITALS (106 sets, daily range): BP systolic 94–144; BP diastolic 47–99
[2016-12-22] MEDS: PROPOFOL 100 ML IV SCH (00:47)
[2016-12-22] MEDS: fentaNYL Drip 2500mCg/250mlNS 250 ML IV SCH (01:46)
[2016-12-22] MEDS: LACTULOSE 20Gm/30ML SOLN NG SCH ×6 (02:00→22:00)
[2016-12-22] MEDS: SODIUM BICARBONATE 50ML VIAL 150 ML in D5W 5% 1,000 ML IV SCH ×2 (03:00→14:52)
[2016-12-22] MEDS: LINEZOLID 600MG/300ML 300 ML IV SCH ×2 (03:00→16:27)
[2016-12-22] MEDS: ALBUTEROL SULF 2.5 MG/0.5ML(0.5%) NEB SOLN NEB SCH ×6 (03:17→22:23)
[2016-12-22] MEDS: IPRATROPIUM BROM 0.5 MG/2.5ML INH SOL NEB SCH ×6 (03:17→22:23)
[2016-12-22] MEDS: PIPERACILLIN-TAZOB 2.25GM 50 ML IV SCH ×3 (05:00→22:00)
[2016-12-22 05:06] LABS: Albumin 2.3 g/dL (3.4-5.0); Calcium 6.1 mg/dL (8.5-10.1)
[2016-12-22 05:08] LABS: Bilirubin, Total 7.1 mg/dL (0.2-1.0); Total Protein 5.1 g/dL (6.4-8.2)
[2016-12-22 05:14] LABS: Potassium 5.9 mmol/L (3.5-5.1)
[2016-12-22] MEDS: metroNIDAZOLE 250MG/50 ML 50 ML IV SCH ×3 (05:55→22:00)
[2016-12-22 07:31] LABS: DEFINITIVE VIEW TRANSMISSION; Hematocrit 31.5 % (41.0-53.0); Hemoglobin 11.1 g/dL (13.5-17.5); Mean Corpuscular Hemoglobin 32.2 pg (28.0-32.0); Mean Corpuscular Hgb Conc. 35.3 g/dL (32.0-36.0); Mean Corpuscular Volume 91.2 fL (80.0-100.0); Mean Platelet Volume 8.7 fL (7.4-10.4); Platelet Count (auto) 38 10^3/uL (140-450); Red Cell Distribution Width 18.1 % (11.6-16.0); SUSPECT VIEW TRANSMISSION
[2016-12-22] MEDS ORDERED: DEXTROSE (50%) 50ML SYRG IV ONE (07:45)
[2016-12-22] MEDS ORDERED: InsuLIN REG 1unit/0.01ml Soln (100units/ml) IV ONE (07:45)
[2016-12-22] MEDS ORDERED: CALCIUM GLUC 4.65 MEQ/10ML 4.65 MEQ in SODIUM CHL 0.9% 50 ML IV ONE (07:45)
[2016-12-22 07:56] LABS: Allen Test Modified; Base Excess -6.3 mmol/L (-2.0-2.0); Blood COHb 0.2 % (0.5-1.5); Blood MetHb 0.3 % (0.0-1.5); HCO3 16.5 mmol/L (22-26.0); MODE VENT - A/C; O2Hb 94.5 % (94.0-97.0); PCO2 25.3 mmHg (35.0-45.0); PCO2(T) 24.2 mmHg (35.0-45.0); PO2 85.4 mmHg (80.0-100.0); PO2(T) 80.1 mmHg (80.0-100.0); Sample Type Arterial; pH 7.433 (7.350-7.450)
[2016-12-22] MEDS ORDERED: SODIUM POLYSTYRENE SULF 15GM/60ML SUSP ONE (07:59)
[2016-12-22 08:09] LABS: Metamyelocytes % 0; Myelocytes % 0; Promyelocytes % 0; Reactive Lymphocytes 0
[2016-12-22] MEDS: SODIUM POLYSTYRENE SULF 15GM/60ML SUSP PO SCH ×2 (08:15→11:46)
[2016-12-22 09:22] LABS: Platelet Estimate Decreased
[2016-12-22 09:23] LABS: Anisocytosis Moderate; Polychromasia Slight
[2016-12-22] MEDS: PANTOPRAZOLE SODIUM 40 MG/10 ML VIAL IV SCH (10:19)
[2016-12-22] MEDS: RIFAXIMIN 550 MG TAB PO SCH ×2 (10:33→22:00)
[2016-12-22] MEDS: VASOPRESSIN 50 UNITS in SODIUM CHL 0.9% 247.5 ML IV SCH (14:49)
[2016-12-22] MEDS: NOREPINEPHRINE BITARTRATE 250 ML IV SCH (16:28)
[2016-12-22] MEDS: MIDAZOLAM DRIP 100 mg/100mL NS 100 ML IV SCH (17:57)
[2016-12-23] VITALS (105 sets, daily range): BP systolic 81–136; BP diastolic 43–93
[2016-12-23] MEDS: PROPOFOL 100 ML IV SCH (00:47)
[2016-12-23] MEDS: fentaNYL Drip 2500mCg/250mlNS 250 ML IV SCH (01:46)
[2016-12-23] MEDS: IPRATROPIUM BROM 0.5 MG/2.5ML INH SOL NEB SCH ×6 (02:10→22:27)
[2016-12-23] MEDS: ALBUTEROL SULF 2.5 MG/0.5ML(0.5%) NEB SOLN NEB SCH ×6 (02:10→22:26)
[2016-12-23] MEDS: SODIUM BICARBONATE 50ML VIAL 150 ML in D5W 5% 1,000 ML IV SCH ×3 (02:25→20:54)
[2016-12-23] MEDS: LACTULOSE 20Gm/30ML SOLN NG SCH ×6 (02:26→21:10)
[2016-12-23] MEDS: LINEZOLID 600MG/300ML 300 ML IV SCH ×2 (02:51→15:00)
[2016-12-23 04:27] LABS: DEFINITIVE VIEW TRANSMISSION; Hematocrit 33.6 % (41.0-53.0); Hemoglobin 11.1 g/dL (13.5-17.5); Mean Corpuscular Hemoglobin 31.7 pg (28.0-32.0); Mean Corpuscular Hgb Conc. 33.1 g/dL (32.0-36.0); Mean Corpuscular Volume 95.8 fL (80.0-100.0); Mean Platelet Volume 8.8 fL (7.4-10.4); Platelet Count (auto) 33 10^3/uL (140-450); Red Cell Distribution Width 18.5 % (11.6-16.0); SUSPECT VIEW TRANSMISSION
[2016-12-23 04:51] LABS: Magnesium 2.7 mg/dL (1.6-2.6); Potassium 4.8 mmol/L (3.5-5.1)
[2016-12-23 04:55] LABS: BUN/Creatinine Ratio 20.4; Bilirubin, Total 8.3 mg/dL (0.2-1.0); Total Protein 4.6 g/dL (6.4-8.2)
[2016-12-23 05:26] LABS: White Blood Cell 51.5 10^3/uL (4.4-10.8)
[2016-12-23] MEDS: PIPERACILLIN-TAZOB 2.25GM 50 ML IV SCH ×3 (05:27→21:09)
[2016-12-23 05:28] LABS: Metamyelocytes % 0; Myelocytes % 0; Promyelocytes % 0; Reactive Lymphocytes 0
[2016-12-23] MEDS: metroNIDAZOLE 250MG/50 ML 50 ML IV SCH ×3 (06:07→21:12)
[2016-12-23 06:30] LABS: Anisocytosis Slight; Macrocytosis Slight; Platelet Estimate Markedly Decreased
[2016-12-23 06:31] LABS: Polychromasia Slight
[2016-12-23 08:42] LABS: Allen Test Yes; Blood COHb 0.4 % (0.5-1.5); Blood MetHb 0.3 % (0.0-1.5); HCO3 23.8 mmol/L (22-26.0); MODE VENT - A/C; O2Hb 95.3 % (94.0-97.0); PCO2 28.3 mmHg (35.0-45.0); PCO2(T) 28.3 mmHg (35.0-45.0); PO2 89.2 mmHg (80.0-100.0); PO2(T) 89.2 mmHg (80.0-100.0); Sample Type Arterial; pH 7.543 (7.350-7.450)
[2016-12-23] MEDS: RIFAXIMIN 550 MG TAB PO SCH ×2 (10:34→21:12)
[2016-12-23] MEDS: PANTOPRAZOLE SODIUM 40 MG/10 ML VIAL IV SCH (10:34)
[2016-12-23] MEDS: NOREPINEPHRINE BITARTRATE 250 ML IV SCH (15:21)
[2016-12-23] MEDS: MIDAZOLAM DRIP 100 mg/100mL NS 100 ML IV SCH (16:03)
[2016-12-24] VITALS (59 sets, daily range): BP systolic 90–134; BP diastolic 40–86
[2016-12-24] MEDS: PROPOFOL 100 ML IV SCH (00:47)
[2016-12-24] MEDS: fentaNYL Drip 2500mCg/250mlNS 250 ML IV SCH (01:46)
[2016-12-24] MEDS ORDERED: NITROGLYCERIN 2% OINT 1GM PKG TD ONE ×2 (01:48)
[2016-12-24] MEDS: VASOPRESSIN 50 UNITS in SODIUM CHL 0.9% 247.5 ML IV SCH (02:16)
[2016-12-24] MEDS: LACTULOSE 20Gm/30ML SOLN NG SCH ×3 (02:27→10:12)
[2016-12-24] MEDS: LINEZOLID 600MG/300ML 300 ML IV SCH (02:45)
[2016-12-24] MEDS: NOREPINEPHRINE BITARTRATE 250 ML IV SCH (03:02)
[2016-12-24] MEDS: ALBUTEROL SULF 2.5 MG/0.5ML(0.5%) NEB SOLN NEB SCH ×3 (03:04→10:14)
[2016-12-24] MEDS: IPRATROPIUM BROM 0.5 MG/2.5ML INH SOL NEB SCH ×3 (03:04→10:14)
[2016-12-24 04:19] LABS: DEFINITIVE VIEW TRANSMISSION; Hematocrit 32.7 % (41.0-53.0); Hemoglobin 10.9 g/dL (13.5-17.5); Mean Corpuscular Hemoglobin 31.7 pg (28.0-32.0); Mean Corpuscular Hgb Conc. 33.5 g/dL (32.0-36.0); Mean Corpuscular Volume 94.7 fL (80.0-100.0); Mean Platelet Volume 9.5 fL (7.4-10.4); Platelet Count (auto) 25 10^3/uL (140-450); Red Cell Distribution Width 17.3 % (11.6-16.0); SUSPECT VIEW TRANSMISSION
[2016-12-24 04:28] LABS: White Blood Cell 32.2 10^3/uL (4.4-10.8)
[2016-12-24 04:29] LABS: Metamyelocytes % 0; Myelocytes % 0; Promyelocytes % 0; Reactive Lymphocytes 0
[2016-12-24 04:43] LABS: Albumin 1.9 g/dL (3.4-5.0)
[2016-12-24 04:51] LABS: BUN/Creatinine Ratio 20.9; Bilirubin, Total 9.2 mg/dL (0.2-1.0); Total Protein 4.7 g/dL (6.4-8.2)
[2016-12-24 04:53] LABS: Anisocytosis Slight; Platelet Estimate Markedly Decreased; Polychromasia Slight
[2016-12-24 04:58] LABS: Calcium 5.6 mg/dL (8.5-10.1)
[2016-12-24] MEDS: PIPERACILLIN-TAZOB 2.25GM 50 ML IV SCH (05:00)
[2016-12-24] MEDS: metroNIDAZOLE 250MG/50 ML 50 ML IV SCH (06:00)
[2016-12-24 07:11] LABS: Allen Test Modified; HCO3 26.7 mmol/L (22-26.0); MODE VENT - A/C; PCO2 34.1 mmHg (35.0-45.0); PCO2(T) 34.1 mmHg (35.0-45.0); PO2 103.9 mmHg (80.0-100.0); PO2(T) 103.9 mmHg (80.0-100.0); Sample Type Arterial; pH 7.511 (7.350-7.450)
[2016-12-24 07:21] LABS: Allen Test Modified; Base Excess 1.3 mmol/L (-2.0-2.0); Blood COHb 1.4 % (0.5-1.5); Blood MetHb 0.1 % (0.0-1.5); HCO3 23.7 mmol/L (22-26.0); MODE VENT - A/C; O2Hb 96.5 % (94.0-97.0); PO2 118.1 mmHg (80.0-100.0); PO2(T) 118.1 mmHg (80.0-100.0); Sample Type Arterial; pH 7.515 (7.350-7.450)
[2016-12-24] MEDS: RIFAXIMIN 550 MG TAB PO SCH (10:12)
[2016-12-24] MEDS: PANTOPRAZOLE SODIUM 40 MG/10 ML VIAL IV SCH (10:12)
[2016-12-24] MEDS ORDERED: cefTRIAXone 1GM/50ML D5W 50 ML IV ONE (11:45)
[2016-12-24] MEDS ORDERED: LORazepam 2MG/ML-1ML VIAL IV PRN (13:45)
[2016-12-24] MEDS: MORPHINE SULF INJ 2 MG/ML SYRINGE 1ML IV PRN ×2 (14:45→16:53)
[2016-12-25] MEDS ORDERED: cefTRIAXone 1GM/50ML D5W 50 ML IV SCH (09:00)
== END 2016-12-24 22:08 | disposition expired | DRG 720 ==
LOC: EDBD 06:22 → ER 06:22 → TELE 06:23 → ICU WEST 12-20 01:45
PROVIDERS: ADMIT Internal Medicine; ATTEND Internal Medicine
PROC: 5A1955Z Respiratory Ventilation, Greater than 96 Consecutive Hours (ICD-10-PCS; principal; 2016-12-19)
PROC: 0BH17EZ Insertion of Endotracheal Airway into Trachea, Via Natural or Artificial Opening (ICD-10-PCS; 2016-12-19)
PROC: 0W9G30Z Drainage of Peritoneal Cavity with Drainage Device, Percutaneous Approach (ICD-10-PCS; 2016-12-20)
PROC: 30233N1 Transfusion of Nonautologous Red Blood Cells into Peripheral Vein, Percutaneous Approach (ICD-10-PCS; 2016-12-20)
DX: A41.51 Sepsis due to Escherichia coli [E. coli] (principal); J96.00 Acute respiratory failure, unspecified whether with hypoxia or hypercapnia; K76.7 Hepatorenal syndrome; N17.0 Acute kidney failure with tubular necrosis; R65.21 Severe sepsis with septic shock; E43 Unspecified severe protein-calorie malnutrition; J18.9 Pneumonia, unspecified organism; G93.41 Metabolic encephalopathy; D68.9 Coagulation defect, unspecified; K65.2 Spontaneous bacterial peritonitis; E87.2 Acidosis; E87.1 Hypo-osmolality and hyponatremia; I50.9 Heart failure, unspecified; K72.90 Hepatic failure, unspecified without coma; J98.11 Atelectasis; K70.31 Alcoholic cirrhosis of liver with ascites; E87.5 Hyperkalemia; D64.9 Anemia, unspecified; Z66 Do not resuscitate; B19.20 Unspecified viral hepatitis C without hepatic coma; F12.10 Cannabis abuse, uncomplicated; J45.909 Unspecified asthma, uncomplicated; M19.90 Unspecified osteoarthritis, unspecified site; N18.9 Chronic kidney disease, unspecified; S30.1XXA Contusion of abdominal wall, initial encounter; Z82.49 Family history of ischemic heart disease and other diseases of the circulatory system; Z80.9 Family history of malignant neoplasm, unspecified; Z68.29 Body mass index [BMI] 29.0-29.9, adult
CPT/HCPCS: 31500; 36415; 36430; 36600; 51702; 70450; 71010; 74176; 76604; 76775; 76942; 80053; 80061; 80307; 80320; 81001; 82140; 82805; 82962; 83605; 83735; 84100; 84132; 84443; 84484; 85007; 85014; 85018; 85027; 85610; 85652; 85730; 86141; 86706; 86803; 86850; 86900; 86901; 87040; 87070; 87077; 87081; 87086; 87186; 87205; 87340; 89051; 93005; 94002; 94003; 94640; 95819; 96365; 96366; 96372; 96375; 99291; C9113; J1815; J2250; J2543; J2704; J3430; J3490